=== PATIENT | female | born 1940 | race Caucasian/White ===

== ENCOUNTER → 2016-07-24 | Outpatient (CLI) | payer MEDICARE | LOC: RAD 14:48 | PROVIDERS: ATTEND Internal Medicine | DX: M25.552 Pain in left hip (principal); M70.62 Trochanteric bursitis, left hip; M70.61 Trochanteric bursitis, right hip ==

== ENCOUNTER → 2017-03-27 | Outpatient (CLI) | payer MEDICARE ==
--- NOTE | 2017-03-27 15:31 | RADIOLOGY REPORT (SQ) ---
EXAM DESCRIPTION: VENOUS UNILATERAL LOWER COMPLETED DATE/TIME: 03/27/2017 3:19 pm REASON FOR STUDY: RLE PAIN COMPARISON: None. TECHNIQUE: Dynamic and static newman scale and color images acquired of the right leg venous system. S elected spectral images acquired with additional compression and augmentation maneuvers. The contrala teral common femoral vein and saphenofemoral junction were also imaged. Images stored on PACS. LIMITATIONS: None. FINDINGS: COMMON FEMORAL: Normal phasicity, compression and augmentation. No visualized echogenic ma terial on newman scale. No defects on color images. FEMORAL: Normal compression and augmentation. No visualized echogenic material on newman scale. No defe cts on color images. POPLITEAL: Normal compression, augmentation. No visualized echogenic material on newman scale. No defec ts on color images. CALF VESSELS: Normal compression, augmentation. No visualized echogenic material on newman scale. No de fects on color images. GSV and SSV: Normal compression, augmentation. No visualized echogenic material on newman scale. No def ects on color images. ANY DEEP VENOUS INSUFFICIENCY: Not evaluated. ANY EVIDENCE OF POPLITEAL CYST: No. OTHER: No other significant finding. CONTRALATERAL COMMON FEMORAL VEIN AND SAPHENOFEMORAL JUNCTION: Normal phasicity, compression and augmentation. No visualized echogenic material on newman scale. No de fects on color images. IMPRESSION: NO EVIDENCE OF DVT OR SVT IN THE RIGHT LEG. TECHNICAL DOCUMENTATION: JOB ID: [id number] [employer]- All Rights Reserved
== END ==
LOC: SP 11:31
PROVIDERS: ATTEND Physician Assistant
DX: M79.604 Pain in right leg (principal)
CPT/HCPCS: 93971